=== PATIENT | male | born 1940 | race Hispanic/Latino ===

== ENCOUNTER 2018-01-25 14:25 | Outpatient (CLI) | payer MEDICARE, MEDICAID ==
[2018-01-25 15:44] LABS: #Lymphocytes 0.8 thou/uL (1.20-3.40); #Monocytes 0.2 thou/uL (0.11-0.59); #Neutrophils 0.9 thou/uL (1.40-6.50); %Basophils 1.7 % (0.0-1.0); %Eosinophils 2.3 % (0.0-10.0); %Lymphocytes 39.8 % (21.0-51.0); %Monocytes 10.4 % (0.0-10.0); %Neutrophils 45.7 % (42.0-75.0); Anisocytosis SLIGHT = 6-15 cells (100X) (0-5/hpf); Hemoglobin 12.7 g/dL (14.0-18.0); Hypochromia SLIGHT = 6-15 cells (100X) (0-5/hpf); MDiff Complete? YES; Mean Corpuscular HGB CONC 33.6 g/dL (32.0-36.0); Mean Corpuscular Hemoglobin 29.4 pg (27.0-31.0); Mean Corpuscular Volume 87.5 fL (78.0-98.0); Mean Platelet Volume 12.1 fL (7.4-10.4); PLT Morphology Comment Appears Decreased; Platelet Count 69 thou/uL (130-400); RBC Distribution Width 14.2 % (11.5-14.5); Red Blood Cell (RBC) Count 4.31 mill/uL (4.70-6.10); White Blood Cell (WBC) Count 2.1 thou/uL (4.8-10.8)
[2018-01-25 16:13] LABS: ALT (SGPT) 16 U/L (8-55); AST (SGOT) 29 U/L (5-34); Albumin 3.9 g/dL (3.4-4.8); Alkaline Phosphatase 62 U/L (40-150); Anion Gap 13 mmol/L (10-20); BUN (Urea Nitrogen) 14 mg/dL (8.4-25.7); Bilirubin, Total 0.5 mg/dL (0.2-1.2); Calc. Creatinine Clearance 0 mL/min (70-130); Calcium 9.4 mg/dL (7.8-10.44); Carbon Dioxide 26 mmol/L (23-31); Chloride 110 mmol/L (98-107); Estimated GFR-MDRD 58; Globulin 2.8 g/dL (2.4-3.5); Glucose 87 mg/dL (83-110); Potassium 4.5 mmol/L (3.5-5.1); Protein, Total 6.7 g/dL (5.8-8.1); Sodium 144 mmol/L (136-145)
[2018-01-25 16:58] LABS: D-Dimer Test 1.08 *mcg/mL (0.27-0.43)
[2018-01-25 17:42] LABS: INR-International Normal Ratio 1.2; PTT 32.9 SEC (22.9-36.1); Prothrombin Time 14.9 SEC (12.0-14.7)
[2018-01-25 22:06] LABS: CRP (Inflammatory) Less than 0.50 mg/dL (= or < 0.5)
[2018-01-25 22:08] LABS: Iron 64 ug/dL (65-175); Iron Binding Capacity, Total 339 mcg/dL (261-462)
[2018-01-25 22:30] LABS: Folate (Folic Acid) 13.6 ng/mL (7.0-31.4)
[2018-01-26 00:19] LABS: HIV (1/2) Antibody/Antigen Non-Reactive (NonReactive); HIV 1/2 INDEX 0.12 S/CO (<1.00); PSA-Symptomatic (DIAGNOSTIC) 1.21 ng/mL (0-4.0)
[2018-01-27 07:37] LABS: % Free PSA 46.7 % (.); Total PSA 0.9 ng/mL (0.0-4.0)
[2018-01-27 12:57] LABS: EliA Thy New Method **** NEW METHOD ****; Thyroglobulin Antibody Less than 12.0 IU/mL (<40 Normal)
== END 2018-01-25 14:26 | disposition home or self-care (01) ==
LOC: MADLAB 14:25
PROVIDERS: ATTEND Radiology Body Imaging
DX: D53.1 Other megaloblastic anemias, not elsewhere classified (principal); D69.6 Thrombocytopenia, unspecified; D72.829 Elevated white blood cell count, unspecified; F10.10 Alcohol abuse, uncomplicated; Z72.0 Tobacco use
CPT/HCPCS: 36415; 80053; 82105; 82378; 82607; 82668; 82746; 83540; 83550; 84153; 84154; 85025; 85379; 85610; 85730; 86140; 86800; 87389

== ENCOUNTER 2018-02-23 22:50 | Emergency (ER) | payer MEDICARE, OTHER ==
[2018-02-23 23:58] LABS: #Eosinphils 0.1 thou/uL (0.0-0.7); #Lymphocytes 1.1 thou/uL (1.20-3.40); #Monocytes 0.4 thou/uL (0.11-0.59); #Neutrophils 1.7 thou/uL (1.40-6.50); %Basophils 0.9 % (0.0-1.0); %Eosinophils 1.8 % (0.0-10.0); %Lymphocytes 33.5 % (21.0-51.0); %Monocytes 12.4 % (0.0-10.0); %Neutrophils 51.5 % (42.0-75.0); Hemoglobin 13.4 g/dL (14.0-18.0); Mean Corpuscular HGB CONC 33.3 g/dL (32.0-36.0); Mean Corpuscular Hemoglobin 29.7 pg (27.0-31.0); Mean Platelet Volume 10.7 fL (7.4-10.4); Platelet Count 66 thou/uL (130-400); RBC Distribution Width 13.6 % (11.5-14.5); White Blood Cell (WBC) Count 3.2 thou/uL (4.8-10.8)
[2018-02-24 00:06] LABS: ALT (SGPT) 16 U/L (8-55); AST (SGOT) 25 U/L (5-34); Albumin 3.5 g/dL (3.4-4.8); Alkaline Phosphatase 60 U/L (40-150); Anion Gap 9 mmol/L (10-20); BUN (Urea Nitrogen) 18 mg/dL (8.4-25.7); Bilirubin, Total 0.7 mg/dL (0.2-1.2); Calc. Creatinine Clearance 0 mL/min (70-130); Calcium 8.7 mg/dL (7.8-10.44); Carbon Dioxide 27 mmol/L (23-31); Chloride 107 mmol/L (98-107); Estimated GFR-MDRD 51; Glucose 105 mg/dL (83-110); Protein, Total 6.5 g/dL (5.8-8.1); Sodium 139 mmol/L (136-145)
[2018-02-24 00:12] LABS: CKMB 1.7 ng/mL (0-6.6); Troponin I Less than 0.010 ng/mL (< 0.028)
--- NOTE | 2018-02-24 07:14 | RAD ---
RADIOGRAPH CHEST 1 VIEW: HISTORY: 77-year-old male with hypotension. FINDINGS: There is no air space density, pulmonary edema, or pneumothorax. The lateral costophrenic angles are sharp. IMPRESSION: No acute pulmonary findings. jn [] POS: [facility]
== END 2018-02-24 01:08 | disposition short-term general hospital (02) ==
LOC: MADERS 22:50
DX: I95.9 Hypotension, unspecified (principal); D64.9 Anemia, unspecified; I10 Essential (primary) hypertension; F17.210 Nicotine dependence, cigarettes, uncomplicated; Z79.899 Other long term (current) drug therapy
CPT/HCPCS: 36415; 71045; 80053; 82553; 84484; 85025; 93005; 94760

== ENCOUNTER 2018-12-10 08:35 | Emergency (ER) | payer MEDICARE, MEDICAID ==
[2018-12-10 09:04] LABS: #Eosinphils 0.1 thou/uL (0.0-0.7); #Lymphocytes 0.7 thou/uL (1.20-3.40); #Monocytes 0.2 thou/uL (0.11-0.59); #Neutrophils 0.9 thou/uL (1.40-6.50); %Basophils 1.9 % (0.0-1.0); %Eosinophils 2.1 % (0.0-10.0); %Lymphocytes 35.2 % (21.0-51.0); %Monocytes 11.8 % (0.0-10.0); %Neutrophils 48.9 % (42.0-75.0); Hemoglobin 11.7 g/dL (14.0-18.0); Mean Corpuscular HGB CONC 32.9 g/dL (32.0-36.0); Mean Corpuscular Hemoglobin 29.7 pg (27.0-31.0); Mean Corpuscular Volume 90.4 fL (78.0-98.0); Platelet Count 56 thou/uL (130-400); Red Blood Cell (RBC) Count 4.01 mill/uL (4.70-6.10); White Blood Cell (WBC) Count 2.1 thou/uL (4.8-10.8)
[2018-12-10 09:05] LABS: INR-International Normal Ratio 1.3; Prothrombin Time 16.3 SEC (12.0-14.7)
[2018-12-10 09:25] LABS: MDiff Complete? YES
[2018-12-10 09:26] LABS: Hypochromia SLIGHT = 6-15 cells (100X) (0-5/hpf); Platelet Morphology Comment Appears Decreased
== END 2018-12-10 09:30 | disposition home or self-care (01) ==
LOC: MADERS 08:35
DX: R04.0 Epistaxis (principal); D68.9 Coagulation defect, unspecified; D64.9 Anemia, unspecified; I10 Essential (primary) hypertension; F03.90 Unspecified dementia, unspecified severity, without behavioral disturbance, psychotic disturbance, mood disturbance, and anxiety; F17.210 Nicotine dependence, cigarettes, uncomplicated; F41.9 Anxiety disorder, unspecified; Z79.891 Long term (current) use of opiate analgesic; Z79.899 Other long term (current) drug therapy
CPT/HCPCS: 85025; 85610; 99283

== ENCOUNTER 2019-03-14 11:11 | Outpatient (CLI) | payer MEDICARE, MEDICAID ==
--- NOTE | 2019-03-14 12:01 | RAD ---
Chest 2 views: 03/14/2019 COMPARISON: 02/23/2018 HISTORY: Tuberculosis exposure FINDINGS: Stable mild increased linear interstitial density. Heart and mediastinal contours are stabl e. No pneumothorax or pleural fluid. No focal consolidation or alveolar edema. No radiographic evidence of tuberculosis. IMPRESSION: No acute findings.
== END 2019-03-14 11:12 | disposition home or self-care (01) ==
LOC: MADRAD 11:11
PROVIDERS: ATTEND Family Medicine
DX: Z11.1 Encounter for screening for respiratory tuberculosis (principal)
CPT/HCPCS: 71046

== ENCOUNTER 2020-08-03 12:28 | Outpatient (CLI) | payer MEDICARE, MEDICAID ==
[2020-08-03 12:59] LABS: INR-International Normal Ratio 1.1; Prothrombin Time 14.6 sec (12.0-14.7)
[2020-08-03 13:00] LABS: PTT 34.6 sec (22.9-36.1)
[2020-08-03 13:04] LABS: #Eosinphils 0.1 thou/uL (0.0-0.7); #Lymphocytes 0.9 thou/uL (1.20-3.40); #Monocytes 0.4 thou/uL (0.11-0.59); #Neutrophils 1.1 thou/uL (1.40-6.50); Hemoglobin 12.2 g/dL (14.0-18.0); Mean Corpuscular HGB CONC 32.6 g/dL (32.0-36.0); Mean Corpuscular Hemoglobin 29.3 pg (27.0-31.0); Mean Corpuscular Volume 90.1 fL (78.0-98.0); Mean Platelet Volume 8.2 fL (7.4-10.4); Platelet Count 82 thou/uL (130-400); Red Blood Cell (RBC) Count 4.14 mill/uL (4.70-6.10); White Blood Cell (WBC) Count 2.5 thou/uL (4.8-10.8)
[2020-08-03 13:10] LABS: ALT (SGPT) 8 U/L (8-55); AST (SGOT) 23 U/L (5-34); Albumin 3.5 g/dL (3.4-4.8); Alkaline Phosphatase 57 U/L (40-110); Anion Gap 12 mmol/L (10-20); BUN (Urea Nitrogen) 15 mg/dL (8.4-25.7); Bilirubin, Total 0.4 mg/dL (0.2-1.2); Calc. Creatinine Clearance 0 mL/min (70-130); Calcium 9.1 mg/dL (7.8-10.44); Carbon Dioxide 26 mmol/L (23-31); Chloride 108 mmol/L (98-107); Globulin 3.1 g/dL (2.4-3.5); Glucose 107 mg/dL (83-110); Potassium 4.5 mmol/L (3.5-5.1); Protein, Total 6.6 g/dL (5.8-8.1)
[2020-08-03 13:17] LABS: %Basophils 1.3 % (0.0-1.0); %Eosinophils 2.9 % (0.0-10.0); %Lymphocytes 37.2 % (21.0-51.0); %Neutrophils 43.7 % (42.0-75.0)
[2020-08-03 13:18] LABS: Anisocytosis SLIGHT = 6-15 cells (100X) (0-5/hpf); Platelet Morphology Comment Appears Decreased
[2020-08-03 13:23] LABS: Sodium 141 mmol/L (136-145)
== END 2020-08-03 12:29 | disposition home or self-care (01) ==
LOC: MADLABSP 12:28
PROVIDERS: ATTEND Family Medicine
DX: R31.0 Gross hematuria (principal); N32.89 Other specified disorders of bladder; Z98.890 Other specified postprocedural states; I87.309 Chronic venous hypertension (idiopathic) without complications of unspecified lower extremity
CPT/HCPCS: 36415; 74176; 80053; 85025; 85610; 85730

== ENCOUNTER 2020-08-07 08:55 | Emergency (ER) | payer MEDICARE, MEDICAID ==
[2020-08-07 09:59] LABS: Clarity Cloudy (Clear)
[2020-08-07 10:01] LABS: Leukocyte Large (Negative)
[2020-08-07 10:03] LABS: Glucose, Urine (Dipstick) Negative (Negative); Protein, Urine (Dipstick) > or equal to 300 mg/dL (Neg-Trace)
[2020-08-07 10:05] LABS: Blood, Urine Large (Negative)
[2020-08-07 10:09] LABS: RBC/HPF Greater than 50 HPF (0-3)
[2020-08-07 10:10] LABS: Bacteria/HPF Rare-Few HPF (None Seen)
== END 2020-08-07 11:19 ==
LOC: MADERS 08:55
DX: N39.0 Urinary tract infection, site not specified (principal); R31.9 Hematuria, unspecified; C67.9 Malignant neoplasm of bladder, unspecified; K70.30 Alcoholic cirrhosis of liver without ascites; D64.9 Anemia, unspecified; I10 Essential (primary) hypertension; F17.210 Nicotine dependence, cigarettes, uncomplicated
CPT/HCPCS: 81003; 81015; 87086; 99283